=== PATIENT | male | born 1965 | race Caucasian/White ===

== ENCOUNTER 2018-08-23 14:47 | Emergency (ER) | payer BC ==
[~2018-08-23] VITALS: Ht 190.5 cm; Wt 108.9 kg
--- NOTE | 2018-08-23 16:54 | RAD ---
EXAM: CHEST 1 VIEW History: Shortness of breath COMPARISON: None available. TECHNIQUE: Single portable radiograph of the chest FINDINGS: Mild cardiomegaly. Mild prominent bilateral interstitial lung markings. The costophrenic sulci are clear and well demarcated. IMPRESSION: Probable mild congestive changes. Electronically signed by: Agapito Perdomo MD (08/23/2018 4:51 PM) [id number]
--- NOTE | 2018-08-23 17:36 | PHYS DOC ---
Past Medical History Past Medical History: Hypertension, Other Additional Past Medical Histor: Recovering from concussion from April 2018. Additional Past Surgical Histo: Bilateral knee scopes. Additional Information: Chews tobacco. Alcohol Use: Occasionally Drug Use: None Adult General Chief Complaint Chief Complaint: ABDOMINAL PAIN HPI HPI Patient is a 53 year old male presents with right lower quadrant pain , tenderness starting approximately 48 hours prior to ED arrival. Pain is described as dull and cramping at baseline as sharp ambulation and position change. HEENT radiates into the back.Patient reports nausea and loss of appetite.no vomiting, diarrhea constipation. No prior abdominal surgeries.[] Review of Systems Review of Systems Review symptoms as per treatment. All other review symptoms are negative. [] All other systems were reviewed and found to be within normal limits, except as documented in this note. Current Medications Current Medications Current Medications Medications (Trade) Dose Ordered Sig/Rolando Start Time Stop Time Status Last Admin Dose Admin Info (CONTRAST GIVEN -- Rx MONITORING) 1 each PRN DAILY PRN 08/23/18 18:15 08/25/18 18:14 Iohexol (Omnipaque 300 Mg/ml) 75 ml 1X ONCE 08/23/18 17:45 08/23/18 18:01 DC 08/23/18 18:07 75 ML Allergies Allergies Allergies Coded Allergies Type Severity Reaction Last Updated Verified No Known Drug Allergies 08/23/18 No Physical Exam Physical Exam Constitutional: Well developed, well nourished, or discomfort secondary to pain. [] HENT: Normocephalic, atraumatic, bilateral external ears normal, oropharynx moist, no oral exudates, nose normal. [] Eyes: PERRLA, EOMI, conjunctiva normal, no discharge. [] Neck: Normal range of motion, no tenderness, supple, no stridor. [] Cardiovascular:Heart rate regular rhythm, no murmur [] Lungs & Thorax: Bilateral breath sounds clear to auscultation [] Abdomen: Bowel sounds normal, soft, right lower quadrant pain, tenderness with voluntary guarding.. [] Skin: Warm, dry, no erythema, no rash. [] Back: No tenderness, no CVA tenderness. [] Extremities: No tenderness, no cyanosis, no clubbing, ROM intact, no edema. [] Neurologic: Alert and oriented X 3, normal motor function, normal sensory function, no focal deficits noted. [] Psychologic: Affect normal, judgement normal, mood normal. [] Current Patient Data Vital Signs Vital Signs Date Time Temp Pulse Resp B/P (MAP) Pulse Ox O2 Delivery O2 Flow Rate FiO2 08/23/18 16:25 99.5 73 126/93 (104) 98 99.5 08/23/18 15:44 18 Room Air Lab Values Laboratory Tests Test 08/23/18 17:25 08/23/18 19:17 White Blood Count 12.2 x10^3/uL (4.0-11.0) H Red Blood Count 4.33 x10^6/uL (4.30-5.70) Hemoglobin 14.1 g/dL (13.0-17.5) Hematocrit 40.1 % (39.0-53.0) Mean Corpuscular Volume 93 fL (79-100) Mean Corpuscular Hemoglobin 33 pg (25-35) Mean Corpuscular Hemoglobin Concent 35 g/dL (31-37) Red Cell Distribution Width 13.1 % (11.5-14.5) Platelet Count 266 x10^3/uL (140-400) Neutrophils (%) (Auto) 68 % (31-73) Lymphocytes (%) (Auto) 19 % (24-48) L Monocytes (%) (Auto) 12 % (0-9) H Eosinophils (%) (Auto) 1 % (0-3) Basophils (%) (Auto) 0 % (0-3) Neutrophils # (Auto) 8.3 x10^3uL (1.8-7.7) H Lymphocytes # (Auto) 2.3 x10^3/uL (1.0-4.8) Monocytes # (Auto) 1.4 x10^3/uL (0.0-1.1) H Eosinophils # (Auto) 0.1 x10^3/uL (0.0-0.7) Basophils # (Auto) 0.0 x10^3/uL (0.0-0.2) Sodium Level 141 mmol/L (136-145) Potassium Level 3.9 mmol/L (3.5-5.1) Chloride Level 102 mmol/L (98-107) Carbon Dioxide Level 29 mmol/L (21-32) Anion Gap 10 (6-14) Blood Urea Nitrogen 9 mg/dL (8-26) Creatinine 0.8 mg/dL (0.7-1.3) Estimated GFR (Cockcroft-Gault) 101.5 BUN/Creatinine Ratio 11 (6-20) Glucose Level 87 mg/dL (70-99) Calcium Level 9.4 mg/dL (8.5-10.1) Total Bilirubin 0.7 mg/dL (0.2-1.0) Aspartate Amino Transferase (AST) 14 U/L (15-37) L Alanine Aminotransferase (ALT) 26 U/L (16-63) Alkaline Phosphatase 83 U/L (46-116) Total Protein 8.0 g/dL (6.4-8.2) Albumin 3.5 g/dL (3.4-5.0) Albumin/Globulin Ratio 0.8 (1.0-1.7) L Lipase 109 U/L (73-393) Urine Collection Type Unknown Urine Color Yellow Urine Clarity Clear Urine pH 6.0 Urine Specific [place] >=1.030 Urine Protein Negative mg/dL (NEG-TRACE) Urine Glucose (UA) Negative mg/dL (NEG) Urine Ketones (Stick) Trace mg/dL (NEG) Urine Blood Moderate (NEG) Urine Nitrite Negative (NEG) Urine Bilirubin Negative (NEG) Urine Urobilinogen Dipstick 1.0 mg/dL (0.2 mg/dL) Urine Leukocyte Esterase Negative (NEG) Urine RBC 6-10 /HPF (0-2) Urine WBC Occ /HPF (0-4) Urine Bacteria 0 /HPF (0-FEW) Laboratory Tests 08/23/18 17:25 Laboratory Tests 08/23/18 17:25 EKG EKG [] Radiology/Procedures Radiology/Procedures [CT abdomen pelvis:] Course & Med Decision Making Course & Med Decision Making Pertinent Labs and Imaging studies reviewed. (See chart for details) [Right lower quadrant pain, symptoms concerning for possible appendicitis. Cared endorsed to oncoming ERP at 18:00. Disposition pending clinical course, imaging and lab studies.] CT scan was returned and positive for diverticulitis. The appendix wasn't seen and normal. The patient has normal vital signs. He has no severe nausea or vomiting. The patient is requesting outpatient therapy. He is discharged home on Flagyl and Cipro. He is advised of the possible competitions of this diagnosis and will return to the ER pending any worsening of his condition. All of his questions were answered prior to discharge. He was given a prescription for [place] for severe pain. Opiate precautions were also discussed prior to discharge. Oneil Disclaimer Oneil Disclaimer This electronic medical record was generated, in whole or in part, using a voice recognition dictation system. Departure Departure Impression: Primary Impression: Right lower quadrant abdominal pain Referrals: UNKNOWN PCP NAME (PCP) Scripts Hydrocodone/Apap 5-325 (NORCO 5-325 TABLET) 1 Each Tablet 1-2 EACH PO PRN Q6HRS PRN for severe pain, #15 as needed for pain Prov: NAVJOT CAIN DO 08/23/18 Metronidazole (FLAGYL) 500 Mg Tablet 500 MG PO TID for 10 Days, #30 TAB Prov: NAVJOT CAIN DO 08/23/18 Ciprofloxacin Hcl (CIPROFLOXACIN HCL) 500 Mg Tablet 1 TAB PO BID, #20 TAB Prov: NAVJOT CAIN DO 08/23/18 RUMA PALACIO DO Aug 23, 2018 17:36 NAVJOT CAIN DO Aug 23, 2018 20:00
[2018-08-23 17:39] LABS: BASO % 0 % (0-3); EOS # 0.1 x10^3/uL (0.0-0.7); EOS % 1 % (0-3); HEMATOCRIT 40.1 % (39.0-53.0); HEMOGLOBIN 14.1 g/dL (13.0-17.5); LYMPH # 2.3 x10^3/uL (1.0-4.8); LYMPH % 19 % (24-48); MEAN CORPUSCULAR HEMOGLOBIN 33 pg (25-35); MEAN CORPUSCULAR HGB CONC 35 g/dL (31-37); MEAN CORPUSCULAR VOLUME 93 fL (79-100); MONO # 1.4 x10^3/uL (0.0-1.1); MONO % 12 % (0-9); NEUT # 8.3 x10^3uL (1.8-7.7); NEUT % 68 % (31-73); PLATELET COUNT 266 x10^3/uL (140-400); RED BLOOD COUNT 4.33 x10^6/uL (4.30-5.70); RED CELL DISTRIBUTION WIDTH 13.1 % (11.5-14.5); WHITE BLOOD COUNT 12.2 x10^3/uL (4.0-11.0)
[2018-08-23 17:41] LABS: CALCIUM 9.4 mg/dL (8.5-10.1); CREATININE 0.8 mg/dL (0.7-1.3); GFR 101.5; POTASSIUM 3.9 mmol/L (3.5-5.1)
[2018-08-23] MEDS ORDERED: IOHEXOL 300 MG/ML 100ML VIAL. IV ONE (17:45)
[2018-08-23 17:47] LABS: ALBUMIN 3.5 g/dL (3.4-5.0); ALBUMIN/GLOBULIN RATIO 0.8 (1.0-1.7); TOTAL BILIRUBIN 0.7 mg/dL (0.2-1.0)
[2018-08-23] MEDS ORDERED: CONTRAST GIVEN. MC PRN (18:15)
--- NOTE | 2018-08-23 18:32 | RAD ---
PQRS Compliance Statement: One or more of the following individualized dose reduction techniques were utilized for this examination: 1. Automated exposure control 2. Adjustment of the mA and/or kV according to patient size 3. Use of iterative reconstruction technique CT ABD PELV W/ IV CONTRST ONLY Clinical Indication: R LOWER ABD PAIN NAUSEA Comparison: None. Technique: Helical CT imaging of the abdomen and pelvis is performed after 75 cc of Omnipaque 300 IV contrast. Oral contrast not given. Findings: Minimal atelectasis in the posterior right lower lobe. Cardiac size normal. Liver, gallbladder, spleen, pancreas, adrenal glands, and abdominal aorta caliber are normal. Small right and left renal cysts. Tiny nonobstructing left renal calculus. No hydronephrosis. Stomach unremarkable. No small bowel obstruction. Moderate distal colon diverticulosis. The appendix is normal. There is mild wall thickening of the mid ascending colon and moderate surrounding inflammation. A few diverticula are seen in this region that are inflamed, for example image 50. There is no perforation. No pericolonic abscess. No abdominal adenopathy or free fluid. The urinary bladder is normal. Prostate size normal. No pelvic free fluid. Bilateral L5 spondylolysis. Mild grade 1 anterolisthesis of L5 on S1. IMPRESSION: 1. Moderate diverticulitis of the mid ascending colon. Focal colitis a secondary consideration. Recommend follow-up imaging in a couple of months to exclude possibility of underlying colon mass. 2. The appendix is normal. 3. Tiny nonobstructing left renal calculus. Electronically signed by: Darryn Peacock MD (08/23/2018 6:28 PM) [id number]
[2018-08-23 18:54] VITALS: BP 159/96
[2018-08-23 19:27] LABS: BILIRUBIN,URINE NEGATIVE (NEG); CLARITY,URINE CLEAR; COLOR,URINE YELLOW; NITRITE,URINE NEGATIVE (NEG); PROTEIN,URINE NEGATIVE (NEG-TRACE)
[2018-08-23] MEDS ORDERED: CIPR500T PO (19:28)
[2018-08-23] MEDS ORDERED: HYDR-971 PO (19:28)
[2018-08-23] MEDS ORDERED: METR500T PO (19:28)
[2018-08-23 19:31] LABS: BACTERIA,URINE 0 /HPF (0-FEW); WBC,URINE OCC /HPF (0-4)
== END 2018-08-23 20:11 | disposition home or self-care (01) ==
LOC: ER 14:47
DX: R10.31 Right lower quadrant pain (principal); R11.0 Nausea; I10 Essential (primary) hypertension; Z72.0 Tobacco use
CPT/HCPCS: 36415; 71045; 74177; 80053; 81001; 83690; 85025; 99285; Q9967